=== PATIENT | male | born 1990 | race Caucasian/White ===

== ENCOUNTER 2020-07-28 14:20 | Emergency (ER) | payer MEDICAID, SELFPAY ==
[2020-07-28 14:33] VITALS: BP 144/108; PULSE 117; RESP 16; TEMP 36.3; O2SAT 99
[2020-07-28 14:42] VITALS: BP 146/122; PULSE 106
--- NOTE | 2020-07-28 14:48 | ED.GENADULT ---
HPI - General Adult General Chief complaint: Skin/Abscess/Foreign Body Stated complaint: ingrown toe nail r 1st digit toe Time Seen by Provider: 07/28/20 14:48 Source: patient and RN notes reviewed Mode of arrival: ambulatory Limitations: no limitations History of Present Illness HPI narrative: 29-year-old male presents with complaints of RT great toe with swelling, warmth, tenderness, and redness for the past 3-4 weeks. Kyaw believes he might have caused the problem removing an ingrown toenail 3-4 weeks ago. Epson salt and Hydrogen peroxide cleaning without relief. No drainage. Denies numbness or tingling. No weakness of toe. Denies fever or chills. Denies immobility. Exacerbation is movement and palpation of toe. Relieving factor is rest. Denies abdominal pain, decrease appetite, nausea, or vomiting. No history of MRSA. The patient reports he have not been diagnosed with COVID-19. The patient reports he is not waiting for the results of a COVID-19 lab test. The patient reports he do not have fever, chills, weakness, or fatigue. The patient reports he do not have a new or worsening cough or shortness of breath. Denies chest pain. The patient reports he do not have any rhinorrhea, congestion, loss of taste, sore throat, and diarrhea. Tolerating po intake well. Denies recent traveling. Denies concerns for COVID-19 or exposures been home with limited outdoor exposure except for essential household needs and return home. At this time, patient is not suspected of having COVID-19. Some parts of this dictation were generated by voice recognition software and may contain typographical and/or grammatical inaccuracies. Related Data Home Medications Medication Instructions Recorded Confirmed quetiapine 50 mg PO DAILY 07/28/20 07/28/20 Allergies Allergy/AdvReac Type Severity Reaction Status Date / Time No Known Allergies Allergy Unknown Verified 07/28/20 14:57 Review of Systems Review of Systems: Narrative: CONSTITUTIONAL: Denies fever, chills, sweats. EYES: Denies visual changes, redness, discharge. ENT: Denies rhinorrhea, congestion, sore throat, otalgia. CARDIOVASCULAR: Denies chest pain, palpitations, edema. RESPIRATORY: Denies dyspnea, wheezing, cough GASTROINTESTINAL: Denies abdominal pain, nausea, vomiting, diarrhea. GENITOURINARY: Denies dysuria, hematuria, abnormal discharge SKIN: Denies drainage, rash, or itching. Complains of RT great toe with swelling, warmth, tenderness, and redness. MUSCULOSKELETAL: Denies acute back pain or myalgia. NEUROLOGIC: Denies numbness, or focal weakness. PSYCHIATRIC: Denies anxiety or depression. All other systems reviewed are negative, except as documented in HPI and below. [facility] Past Medical History Medical History (Updated 07/31/20 @ 15:27 by DEB Henao) Anxiety Shoulder injury Tachycardia Surgical History Surgical History (Updated 07/31/20 @ 15:27 by DEB Henao) History of shoulder surgery 2009 History of tonsillectomy at age 6 Family History Family History (Updated 07/31/20 @ 15:29 by DEB Henao) Father Heart disease Cerebrovascular accident History of heart bypass surgery Mother Alive and well Social History Social History (Updated 07/31/20 @ 15:30 by DEB Henao) Smoking status: Never smoker Tobacco type: cigarettes Second hand tobacco smoke exposure: No Alcohol intake: current Substance use: former Substance use type: marijuana Living arrangements: with family Occupation/Education: unemployed Gender identity (if verbalized by the patient): Male Comments At time of signature, agree with nurse past medical, surgical, social, and family history. There is no relevant family history pertinent to the presenting complaint. Exam Narrative: Exam Narrative: GENERAL: This is a well-nourished, well-developed patient, in no apparent distress. HEAD: normocephalic
== END 2020-07-28 14:59 | disposition home or self-care (01) ==
PROVIDERS: Emergency Provider Nurse Practitioner Family
DX: L03.031 Cellulitis of right toe (principal)
CPT/HCPCS: 99213; G0463

== ENCOUNTER 2024-04-23 02:44 | Observation (INO) | payer OTHER, SELFPAY ==
[2024-04-23] VITALS (17 sets, daily range): BP systolic 145–166; BP diastolic 83–103; PULSE 89–118; RESP 16–25; TEMP 35.7–36.5; O2SAT 93–99
--- NOTE | ~2024-04-23 | XR_ITS ---
EXAMINATION: XR chest 2V DATE: 04/23/2024 03:12 INDICATION: Mid chest pain. TECHNIQUE: Frontal and lateral views of the chest were obtained. COMPARISON: Chest 2 views 11/03/2018, CT abdomen and pelvis 04/23/2024 FINDINGS: There is mild atelectasis in the lower lung zones. No pleural effusion or pneumothorax. The heart size is normal. IMPRESSION: 1. Mild atelectasis in the lower lung zones. Reviewed, dictated and finalized at location E.
--- NOTE | ~2024-04-23 | CT_ITS ---
EXAMINATION: CT abdomen pelvis w con DATE: 04/23/2024 03:26 INDICATION: Abdominal pain. TECHNIQUE: Computed tomography (CT) of the abdomen and pelvis was performed with 100 mL Omnipaque 350 intravenous contrast. Automated exposure control and iterative reconstruction technique were employe d. The dose-length product was 1901.55 mGy-cm. COMPARISON: CT abdomen and pelvis 09/23/2017 FINDINGS: The visualized portions of the lung bases demonstrate mild atelectasis. No pleural effusion . The heart size is normal. No pericardial effusion. There is mild bilateral gynecomastia. The liver and spleen are normal. The gallbladder is distended. There is fat stranding adjacent to the gallbladd er. The pancreas, adrenal glands, and kidneys are normal. The prostate is moderately enlarged. There are no dilated loops of bowel. The appendix is normal. There are no pathologically enlarged lymph nod es. There is no free intraperitoneal fluid. There is an umbilical hernia containing fat. There is a l eft inguinal hernia containing fat. There is mild thoracic and lumbar spondylosis. IMPRESSION: 1. Distended gallbladder with adjacent fat stranding, consistent with acute cholecystitis. Reviewed, dictated and finalized at location E. IMPRESSION: 1. Distended gallbladder with adjacent fat stranding, consistent with acute cho lecystitis.
--- NOTE | ~2024-04-23 | US_ITS ---
EXAMINATION: US abdomen limited DATE: 04/23/2024 09:44 INDICATION: Abdominal pain. TECHNIQUE: Multiple grayscale and Doppler ultrasound images of the abdomen were obtained. COMPARISON: CT abdomen and pelvis 04/23/2024 FINDINGS: The visualized portions of the head and body of the pancreas are normal. There is diffuse h epatic steatosis. There is normal flow in main portal vein. The gallbladder is distended. No visible gallstones. Gallbladder wall thickening is noted. There is a positive sonographic Braxton sign. The co mmon duct is normal and measures 4 mm. IMPRESSION: 1. Distended gallbladder with gallbladder wall thickening and positive sonographic Braxton's sign, con sistent with acute cholecystitis. 2. Diffuse hepatic steatosis. Reviewed, dictated and finalized at location E. IMPRESSION: 1. Distended gallbladder with gallbladder wall thickening and positive sonograp hic Braxton's sign, consistent with acute cholecystitis. 2. Diffuse hepatic steatosis.
--- NOTE | 2024-04-23 02:46 | ECG_ITS ---
Test Date: 2024-04-23 02:49:02 Measurements Intervals [place] Rate: 94 P: 6 IA: 135 QRS: 85 QRSD: 100 T: 34 QT: 354 QTc: 443 Interpretive Statements SINUS RHYTHM No previous ECG available for comparison Electronically Signed On 04-23-2024 12:07:56 CDT by Buddy Abbott M.D.
[2024-04-23 02:55] LABS: Basophils Absolute Auto 0.1 K/mm3 (0.0-0.1); Basophils Percent Auto 0.6 % (0.2-1.2); Eosinophils Absolute Auto 0.2 K/mm3 (0-0.3); Eosinophils Percent Auto 1.3 % (0-4.4); Hematocrit 48.4 % (42.0-52.0); Immature Granulocyte Absolute 0.14 K/mm3 (0.00-0.031); Immature Granulocyte Percent A 1.1 % (0-0.5); Lymphocytes Absolute Auto 1.76 K/mm3 (0.9-3.2); Lymphocytes Percent Auto 13.3 % (18.3-44.2); Mean Corpuscular HGB Conc 35.1 g/dl (32-36); Mean Corpuscular Hemoglobin 30.7 pg (26-34); Mean Corpuscular Volume 87.5 fl (80-100); Mean Platelet Volume 11.8 fl (7.4-10.4); Monocytes Absolute Auto 1.4 K/mm3 (0.1-0.6); Monocytes Percent Auto 10.7 % (2.6-8.5); Neutrophils Absolute Auto 9.7 K/mm3 (1.3-6.7); Platelet Count Result 204 k/mm3 (150-375); Red Blood Count 5.53 M/mm3 (4.6-6.20); Red Cell Distribution Width 12.5 % (11.5-14.5); White Blood Count 13.2 K/mm3 (4.5-10.0)
[2024-04-23 03:04] LABS: Alanine Aminotransferase 50 U/L (6-50); Albumin Level 4.7 g/dL (3.5-5.1); Alkaline Phosphatase 49 U/L (38-126); Anion Gap 12 mmol/L (4-12); Aspartate Amino Transferase 28 U/L (17-59); Bilirubin,Total 0.9 mg/dL (0.2-1.3); Blood Urea Nitrogen 12 mg/dL (9-20); Calcium 9.3 mg/dL (8.4-10.2); Carbon Dioxide 22 mmol/L (22-30); Chloride 107 mmol/L (98-107); Estimated CRCL calculation 133 ml/min; Estimated Glomerular Filt Rate > 60; Glucose 129 mg/dL (65-110); Lipase 69 U/L (23-300); Potassium 3.7 mmol/L (3.4-5.0); Sodium 141 mmol/L (137-145)
[2024-04-23 03:16] LABS: Troponin I < 0.012 ng/mL (0.000-0.034)
--- NOTE | 2024-04-23 03:23 | PC.NURSE ---
pt in ctscan, unable to medicate at this time.
[2024-04-23 03:28] LABS: INR 0.9; Partial Thromboplastin Time 26.9 Seconds (22.3-36.8); Prothrombin Time 12.8 Seconds (11.1-14.7)
[2024-04-23] MEDS: MORPHINE SULFATE (*CRX) 4 MG/ML INJ IV PUSH (03:31)
[2024-04-23] MEDS: SODIUM CHLORIDE 0.9% IV 1,000 ML 999 ML IV CONT (03:31)
[2024-04-23] MEDS: ONDANSETRON INJ 4 MG/2 ML VIAL IV PUSH (03:31)
[2024-04-23 04:36] LABS: Appearance Urine Clear (Clear); Bilirubin Urine Negative (Negative); Blood Urine Negative (Negative); Color Urine Yellow (Yellow); Glucose Urine UA Negative (Negative); Ketones Urine Negative (Negative); Leukocyte Esterase Ur Negative LEU/UL (Negative); Nitrate Urine Negative (Negative); Protein Urine Negative (Negative); Urobilinogen Urine 0.2 mg/dL (<2.0)
[2024-04-23 04:37] LABS: Add Urine Microscopic? NO; Specific Grav Ur 1.056 (1.001-1.035)
--- NOTE | 2024-04-23 05:16 | ED.GENADULT ---
HPI - General Adult General Chief complaint: Chest Pain Stated complaint: CHEST PAIN X 2 HOURS Time Seen by Provider: 04/23/24 02:49 History of Present Illness HPI narrative: patient id 3-year-old gentleman who presents emergency department with chief complaint of chest/ epigastric pain. Patient reports that the pain began this evening reports radiates to his back patient reports that her symptoms are not improved by anything and reports that there worsened with palpation of his abdomen Related Data Home Medications Medication Instructions Recorded Confirmed quetiapine 50 mg tablet 50 mg PO DAILY 07/28/20 07/28/20 Allergies Allergy/AdvReac Type Severity Reaction Status Date / Time No Known Allergies Allergy Unknown Verified 07/28/20 14:57 Review of Systems Review of Systems: A 10 system review of systems was completed on the patient and is negative except for what is stated in the HPI. Nursing and ancillary documentation was reviewed. [facility] Past Medical History Medical History Anxiety Shoulder injury Tachycardia Surgical History Surgical History History of shoulder surgery 2009 History of tonsillectomy at age 6 Family History Family History Father Heart disease Cerebrovascular accident History of heart bypass surgery Mother Alive and well Social History Social History Smoking status: Never smoker Tobacco type: cigarettes Second hand tobacco smoke exposure: No Alcohol intake: current Substance use: former Substance use type: marijuana Living arrangements: with family Occupation/Education: unemployed Gender identity (if verbalized by the patient): Male Exam Narrative: GENERAL: Well-appearing, well-nourished, and in no acute distress. HEAD: Normocephalic, atraumatic. EYES: PERRLA and EOMI. ENT: Nares clear, no rhinorrhea or epistaxis. Mucous membranes moist. NECK: Supple. CHEST: Clear to auscultation. No respiratory distress. HEART: Regular rate and rhythm. No murmur heard. Normal peripheral pulses. ABDOMEN: Soft, tenderness to palpation in the epigastric region, nondistended, normal active bowel sounds. EXTREMITIES: Normal range of motion. No edema. SKIN: Warm, dry, no rash. NEURO: No focal deficits. Alert and oriented x3. PSYCH: Normal mood and affect. Course Vital Signs Vital signs: Vital Signs Temperature 36.5 C 04/23/24 02:41 Pulse Rate 91 04/23/24 02:41 Respiratory Rate 18 04/23/24 02:41 Blood Pressure 166/103 H 04/23/24 02:41 Pulse Oximetry 99 04/23/24 02:41 Oxygen Delivery Room Air 04/23/24 02:41 Temperature 36.5 C 04/23/24 02:41 Pulse Rate 118 H 04/23/24 06:01 Respiratory Rate 25 H 04/23/24 06:01 Blood Pressure 146/91 H 04/23/24 06:01 Pulse Oximetry 98 04/23/24 06:01 Oxygen Delivery Room Air 04/23/24 02:41 Medical Decision Making MDM Narrative Medical decision making narrative: differential diagnosis includes ACS, cholecystitis, pancreatitis, cholelithiasis, choledocholithiasis EKG showed no acute ischemic changes laboratory studies showed a white count of 13.2 liver enzymes were normal troponin was 0 hour and 3 hour urinalysis showed no evidence UTI chlamydia gonorrhea were negative. CT scan of the abdomen pelvis showed 1. Distended gallbladder with adjacent fat stranding, consistent with acute cholecystitis. the patient was still having moderate pain. The case was discussed with Dr. Desai the patient is uncomfortable going home patient started on ceftriaxone Flagyl and will be admitted for pain control and surgical consultation. Vital Signs Vital Signs: Vital Signs Temperature 36.5 C 04/23/24 02:41 Pulse Ra
--- NOTE | 2024-04-23 05:56 | PC.NURSE ---
pt ambulatory with steady gait to exit. no distress noted.
--- NOTE | 2024-04-23 05:57 | ECG_ITS ---
Test Date: 2024-04-23 05:59:23 Measurements Intervals [place] Rate: 113 P: 33 GA: 148 QRS: 80 QRSD: 105 T: 24 QT: 333 QTc: 457 Interpretive Statements SINUS TACHYCARDIA Compared to ECG 04/23/2024 02:49:02 SINUS TACHYCARDIA NOW PRESENT Electronically Signed On 04-23-2024 12:09:46 CDT by Buddy Abbott M.D.
[2024-04-23 06:01] LABS: Chlamydia trachomatis NOT DETECTED (NOT DETECTE); Neisseria gonorrhoeae PCR NOT DETECTED (NOT DETECTE)
[2024-04-23 06:31] LABS: Troponin I < 0.012 ng/mL (0.000-0.034)
[2024-04-23] MEDS: SODIUM CHLORIDE 0.9% IV 1,000 ML 125 ML IV CONT ×3 (07:14→21:17)
[2024-04-23] MEDS: metroNIDAZOLE 500 MG/ISO 100ML 500 MG/100 ML BAG 100 MG IVPB ×3 (07:37→21:16)
--- NOTE | 2024-04-23 07:55 | ADMGEN ---
This patient, Kyaw Newell, was admitted to 3 Med Surg Room 306-02. Patient/family oriented to hospital policies and general routines including ID bracelet, bed and alarms, visiting hours, pain management, procedures, bathroom and other care routines, personal items, smoking policy, room service/diet, and visiting hours. Information on how to activate the Rapid Response Team has been discussed. Patient/Family are encouraged to report perceived risks to care and to ask questions if they do not understand what they are told or what they should do.
--- NOTE | 2024-04-23 09:01 | PM.IMHP ---
H&P: HPI History of Present Illness Date/Time: 04/23/24 09:01 Chief Complaint: Abdominal pain Narrative: This is a 33-year-old man who presented to the ER with complaints of epigastric abdominal pain. His pain started around 10:00 p.m. last night, a few hours after eating fried chicken for dinner. Initially, he thought his pain was related to heartburn. He tried belching and tried to have a bowel movement without relief. His abdominal pain became more severe and radiated up into his chest and also down across his entire abdomen. No alleviating factors. Due to the persistent pain, he came into the ER for evaluation. [place] [address]. LFTs normal. Troponin negative x2. Chest x-ray showed mild atelectasis in the lower lung zones. CT scan of the abdomen and pelvis showed a distended gallbladder with adjacent fat stranding, consistent with acute cholecystitis. No gallstones visible on CT. Also incidentally noted is a small left inguinal hernia and umbilical hernia both containing fat. He was given IV morphine in the ER, which helped his pain. He was admitted in this setting for surgical evaluation. He is seen this morning on the medical floor with his mother at the bedside. He is still having abdominal pain, but it has improved. No nausea or vomiting. He reports heartburn and epigastric pain sometimes after eating spicy foods in the past, but no comparable episodes of pain to what he experienced last night. No previous abdominal surgery. Review of Systems Review of Systems: All systems reviewed & are unremarkable except as noted in HPI and below PMFSH Past Medical History Medical History Anxiety History of pneumothorax What sounds like a small pneumothorax after general anesthesia for shoulder surgery, treated conservatively without any surgical intervention. Shoulder injury Tachycardia Surgical History Surgical History History of shoulder surgery 2009 History of tonsillectomy at age 6 Family History Family History Father Heart disease Cerebrovascular accident History of heart bypass surgery Mother Alive and well Social History Social History Smoking status: Former smoker Second hand tobacco smoke exposure: No Alcohol intake: current Substance use: former Substance use type: marijuana Living arrangements: with family Occupation/Education: unemployed Gender identity (if verbalized by the patient): Male Meds Home Medications and Allergies Home Medications Medication Instructions Recorded Confirmed Type doxycycline monohydrate 100 mg 100 mg PO BID Infection 10 days 07/28/20 Rx capsule #20 caps quetiapine 50 mg tablet 50 mg PO DAILY 07/28/20 07/28/20 History Allergies Allergy/AdvReac Type Severity Reaction Status Date / Time prednisone Allergy Hives Verified 04/23/24 07:40 Vital Signs Vital Signs - 24 hr 04/23/24 02:41 04/23/24 02:49 04/23/24 04:48 Temperature 97.7 F Pulse Rate 91 89 103 H Respiratory Rate 18 18 Blood Pressure 166/103 H Pulse Oximetry 99 97 Oxygen Delivery Room Air Fraction of Inspired Oxygen 04/23/24 05:12 04/23/24 05:15 04/23/24 05:16 Temperature Pulse Rate 105 H 107 H 102 H Respiratory Rate 20 19 24 H Blood Pressure 154/91 H Pulse Oximetry 95 93 97 Oxygen Delivery Fraction of Inspired Oxygen 04/23/24 05:17 04/23/24 05:31 04/23/24 05:34 Temperature Pulse Rate 102 H 110 H 105 H Respiratory Rate 18 20 19 Blood Pressure 152/96 H Pulse Oximetry 97 97 98 Oxygen Delivery Fraction of Inspired Oxygen 04/23/24 05:46 04/23/24 06:00 04/23/24 06:01 Temperature Pulse Rate 106 H 116 H 118 H Respiratory Rate 18 16 25 H Blood Pressure 163/83 H 146/91 H
[2024-04-23 11:38] LABS: Troponin I < 0.012 ng/mL (0.000-0.034)
--- NOTE | 2024-04-23 15:53 | PM.DS ---
DS: Admitting Diagnosis Discharge Date 04/23/2024 Admitting Diagnosis Acute cholecystitis DS: Discharge Diagnosis Discharge Diagnosis (1) Acute cholecystitis: Code(s): K81.0 - Acute cholecystitis Status: Acute DS: Summary Hospital Course Reason for hospitalization: This is a 33-year-old man who presented to the ER with epigastric abdominal pain. Workup showed CT evidence of acute cholecystitis and mild leukocytosis. Pain persisted after IV morphine in the ER and he was admitted for surgical evaluation. Hospital Course: Right upper quadrant ultrasound ordered and showed no gallstones, but findings consistent with acute cholecystitis. Throughout the day, his abdominal pain has resolved and he is feeling much better this afternoon. Patient is now wishing to try eating a diet and if he is able to tolerate this, then he wishes to go home and return for surgery as an outpatient. His diet was advanced to a low-fat diet today. He will be discharged home this afternoon on oral antibiotics if able to tolerate a diet. Plan will be to schedule him for a laparoscopic cholecystectomy with Dr. Black in the next few weeks as an outpatient. Status at Discharge Functional status at discharge: independent ambulation Overall status at discharge: patient is back to baseline Time Spent with Patient Time attestation: Total time spent providing and/or coordinating discharge services: Time spent: Greater than 30 minutes Exam Const: General: comfortable and no acute distress Orientation/consciousness: patient oriented x3 GI: Inspection: non-distended and obesity GI Palp: Yes Soft to palpation, No Tenderness to palpation present (GI), No Guarding due to palpation present (GI) and No Rebound tenderness present Auscultation: normal bowel sounds DS: Data Data Completed and Pending Labs on day of discharge: Labs from last 24 hours 04/23/24 04/23/24 04/23/24 11:04 05:53 04:27 WBC RBC Hgb Hct MCV MCH MCHC RDW Plt Count MPV Immature Gran % (Auto) Neut % (Auto) Lymph % (Auto) [place] % (Auto) Eos % (Auto) Baso % (Auto) Lymph # (Auto) [place] # (Auto) Eos # (Auto) Baso # (Auto) Abs Immat Gran (auto) Absolute Neuts (auto) Absolute Nucleated RBC Nucleated RBC % PT INR APTT Sodium Potassium Chloride Carbon Dioxide Anion Gap BUN Creatinine Estim Creat Clear Calc Estimated GFR Glucose Calcium Total Bilirubin AST ALT Alkaline Phosphatase Troponin I < 0.012 < 0.012 Total Protein Albumin Lipase Urine Color Yellow Urine Appearance Clear Urine pH 7.0 Ur Specific [place] 1.056 H Urine Protein Negative Urine Glucose (UA) Negative Urine Ketones Negative Ur Blood (Man) Negative Urine Nitrate Negative Urine Bilirubin Negative Urine Urobilinogen 0.2 Leukocyte Esterase Rfl Negative C. trachomatis (PCR) Not detected N. gonorrhoeae (PCR) Not detected 04/23/24 02:50 WBC 13.2 H RBC 5.53 Hgb 17.0 Hct 48.4 MCV 87.5 MCH 30.7 MCHC 35.1 RDW 12.5 Plt Count 204 MPV 11.8 H Immature Gran % (Auto) 1.1 H Neut % (Auto) 73.0 Lymph % (Auto) 13.3 L [place] % (Auto) 10.7 H Eos % (Auto) 1.3 Baso % (Auto) 0.6 Lymph # (Auto) 1.76 [place] # (Auto) 1.4 H Eos # (Auto) 0.2 Baso # (Auto) 0.1 Abs Immat Gran (auto) 0.14 H Absolute Neuts (auto) 9.7 H Absolute Nucleated RBC 0.000 Nucleated RBC % 0.0 PT 12.8 INR 0.9 APTT 26.9 Sodium 141 Potassium 3.7 Chloride 107 Carbon Dioxide 22 Anion Gap 12 BUN 12 Creatinine 1.10 Estim Creat Clear Calc 133 Estimated GFR > 60 Glucose 129 H Calcium 9.3 Total Bilirubin 0.9 AST 28 ALT 50 Alkaline Phosphatase 49 Troponin I < 0.012 Total Protein 8.0 Albumin 4.7 Lipase 69 Urine Color Urine Appearance Urine pH Ur Specific [place] Urine Protein Urine Glucose (UA) U
[2024-04-24] VITALS (19 sets, daily range): BP systolic 133–169; BP diastolic 77–113; PULSE 86–110; RESP 14–29; TEMP 36.1–37.2; O2SAT 92–100
[2024-04-24] MEDS: metroNIDAZOLE 500 MG/ISO 100ML 500 MG/100 ML BAG 100 MG IVPB ×3 (04:57→21:56)
[2024-04-24] MEDS: SODIUM CHLORIDE 0.9% IV 1,000 ML 125 ML IV CONT (04:57)
--- NOTE | 2024-04-24 08:28 | PM.PNGS ---
Progress Note: A&P Assessment and Plan (1) Acute cholecystitis: Code(s): K81.0 - Acute cholecystitis Status: Acute Assessment and Plan: setup for cholecystectomy today, NPO, IV abx Subjective Subjective Date/Time Seen: 04/24/24 08:28 Interval history: still c some mild pain, was able to lianna low fat diet yesterday Review of Systems Review of Systems: All systems reviewed & are unremarkable except as noted in HPI and below Exam GI: Inspection: normal to inspection GI Palp: Yes abdominal tenderness, Yes Soft to palpation, Yes Tenderness to palpation present (GI), No Guarding due to palpation present (GI) and No Rigid due to palpation Objective Data Vital Signs Vital Signs: Vital Signs - 24 hr 04/23/24 08:33 04/23/24 14:00 04/23/24 09:11 Temperature 36.3 C L 35.9 C L Pulse Rate 103 H 101 H Respiratory Rate 22 H 20 Blood Pressure 148/97 H 145/95 H Pulse Oximetry 98 97 Oxygen Delivery Room Air 04/23/24 20:35 04/24/24 04:35 Temperature 35.7 C L 36.2 C L Pulse Rate 93 94 Respiratory Rate 16 16 Blood Pressure 146/96 H 150/84 H Pulse Oximetry 98 99 Oxygen Delivery Intake/Output Intake/Output: Intake & Output 04/21/24 04/22/24 04/23/24 04/24/24 23:59 23:59 23:59 23:59 Intake Total 3776.2 1358.3 Balance 3776.2 1358.3 Meds/Results Medications: Active Medications Generic Name Dose Route Start Last Admin Trade Name Freq PRN Reason Stop Dose Admin Fentanyl Citrate 25 mcg 04/24/24 07:48 Fentanyl Citrate Inj (*Crx) 100 Mcg/2 Ml Vial IV PUSH Q2M PRN Pain Sodium Chloride 1,000 mls @ 125 mls/hr 04/23/24 06:55 04/24/24 04:57 Normal Saline Iv IV CONT 125 mls/hr .Q8H FERNANDO Administration Ceftriaxone Sodium 1 gm in 50 mls @ 100 mls/hr 04/24/24 09:00 Rocephin 1 Gm/Ns 50 Ml IVPB Q24H FERNANDO Metronidazole 500 mg in 100 mls @ 100 mls/hr 04/23/24 14:00 04/24/24 04:57 Flagyl 500 Mg/Iso Soln 100 Ml IVPB 100 mls/hr Q8HR FERNANDO Administration Lactated Ringer's 1,000 mls @ 30 mls/hr 04/24/24 07:50 Lr - Lactated Ringers Iv IV CONT .Q24H FERNANDO Morphine Sulfate 4 mg 04/23/24 06:51 Morphine Sulfate (*Crx) 4 Mg/Ml Inj IV PUSH Q2H PRN Pain Rated 7-10 Ondansetron HCl 4 mg 04/23/24 06:51 Ondansetron Inj 4 Mg/2 Ml Vial IV PUSH Q4H PRN Nausea Radiology Results: ITS Impressions Chest X-Ray 04/23/24 05:08 IMPRESSION: 1. Mild atelectasis in the lower lung zones. Abdomen/Pelvis CT 04/23/24 05:09 IMPRESSION: 1. Distended gallbladder with adjacent fat stranding, consistent with acute cholecystitis. Abdomen Ultrasound 04/23/24 09:50 IMPRESSION: 1. Distended gallbladder with gallbladder wall thickening and positive sonographic Braxton's sign, consistent with acute cholecystitis. 2. Diffuse hepatic steatosis. Labs Labs: Laboratory Results - last 24 hr 04/23/24 11:04 Troponin I < 0.012
--- NOTE | 2024-04-24 11:57 | PC.NURSE ---
To OR per [kari], IV [ 18 R wrist and 18 L ac ]. Report given to [Kari].
[2024-04-24] MEDS: LACTATED RINGERS 1,000 ML 30 ML IV CONT ×3 (12:00→14:15)
--- NOTE | 2024-04-24 12:31 | WPDANESEPPF ---
Anes - Initial Pre Proc Eval Procedure: Operation Date: 04/24/24 13:00 Proposed Procedures p Laparoscopic Cholecystectomy - Mookie Dodson DO Date/Time: 04/24/24 12:31 Surgeon: Yadira Black MD Pre Op Diagnosis: acute colecystitis Patient Data Age: 33 Gender: M Height: 1.91 m Weight: 150.5 kg Last Vital Signs Temp 97.2 F L 04/24/24 10:30 Pulse 92 04/24/24 10:30 Resp 20 04/24/24 10:30 BP 150/94 H 04/24/24 10:30 Pulse Ox 100 04/24/24 10:30 O2 Del Method Room Air 04/23/24 09:11 FiO2 21 04/23/24 08:10 Allergies Allergy/AdvReac Type Severity Reaction Status Date / Time prednisone Allergy Hives Verified 04/23/24 07:40 Home Medications Medication Instructions Recorded Confirmed Type amoxicillin 875 mg-potassium 1 tablet PO Q12H #10 tabs 04/23/24 Rx clavulanate 125 mg tablet Patient hx anesthesia problems: other (Pt apparently had ptx after GA for shoulder sx at 19 yo, uncertain of if he had ISB or not. Other details unclear. ) Family hx anesthesia problems: none Results Review: All pre-operative results and documents have been reviewed as part of the pre-operative evaluation. [facility] Past Medical History Medical History Anxiety History of pneumothorax What sounds like a small pneumothorax after general anesthesia for shoulder surgery, treated conservatively without any surgical intervention. Shoulder injury Tachycardia Surgical History Surgical History History of shoulder surgery 2009 History of tonsillectomy at age 6 Family History Family History Father Heart disease Cerebrovascular accident History of heart bypass surgery Mother Alive and well Social History Social History Smoking status: Former smoker Second hand tobacco smoke exposure: No Alcohol intake: current Substance use: former Substance use type: marijuana Do You Feel Safe in your Home?: Yes Lack of Transportation: No Lack of Food: Never True Current Housing: I Have Housing Concerned About Future Housing: No Difficulty Paying Gas/Electric Bills: No Difficulty Paying for Meds: No Currently Unemployed: No Education: Decline to Answer Difficulty w/ Childcare or Family Care: No Living arrangements: with family Occupation/Education: unemployed Gender identity (if verbalized by the patient): Male Spiritual care concerns: No Anes - Eval Final PreProcedure Day of Procedure 04/24/24 12:31 Patient weight: morbidly obese Heart: regular rate and rhythm Lungs: clear to auscultation Airway: Mallampati scale class III Neurological: alert and oriented Last oral intake: >/= 8 hours ASA classification: III Emergent: no Anesthetic plan: proceed Anesthesia type and monitoring: general ETT and standard monitoring Results Review: All pre-operative results and documents have been reviewed as part of the pre-operative evaluation. Pt w PANKAJ suspected, no definitive dx. Now for lap aguila. Informed Consent: The patient's anesthetic plan and its attendant risks and benefits were discussed with the patient/family/POA. Questions were solicited and answers provided to the satisfaction of the patient/family/POA.
--- NOTE | 2024-04-24 12:52 | WPDHPUPDATE1 ---
History and Physical Update Update Date/Time: 04/24/24 12:52 History and Physical has been reviewed, including an updated exam of the patient. There are NO changes in the patient's condition. Risks, benefits, and alternatives have been discussed and questions answered. Patient agrees to proceed with procedure.
[2024-04-24] MEDS: BUPIVACAINE/EPINEPHRINE 0.5% 10 ML VIAL 30 ML INFILTRATE (13:42)
--- NOTE | 2024-04-24 14:13 | W.PM.PROC2 ---
Procedure Note - Detailed Date of Procedure 04/24/24 Pre-op Diagnosis acute cholecystitis Post-op Diagnosis Same Procedure Performed Laparoscopic Cholecystectomy Surgeon Mokoie Dodson, DO Anesthesia General and Local (0.5% bupivacaine) Indications This is a 33-year-old man who presented to the emergency department with acute onset of right upper quadrant abdominal pain. He was found to have an elevated white blood count and CT showed evidence of acute cholecystitis. He was feeling slightly better and was started on a low-fat diet. Patient was hoping to possibly be discharged home if his pain was resolved, however his pain persisted with even trying a low-fat diet. Further discussions were made with the patient about treatment options and decision was made to proceed with laparoscopic cholecystectomy, possible open. Findings Laparoscopic cholecystectomy was performed. The patient's gallbladder appeared acutely inflamed with hyperemia, induration, and distended gallbladder. The gallbladder was tense and difficult to grasp, therefore it was aspirated with laparoscopic aspirating needle. About 60 mL of thick sludge bile was aspirated. The cystic duct appeared normal in size. The gallbladder was removed and sent to the lab for pathology. I did have some bleeding at the cystic artery stump after I transected it. I was able to control the bleeding vessel and placed 2 more clips across it and hemostasis was then adequate afterwards. Description of Procedure Procedure as well as risks, benefits, and alternatives were discussed with patient. Written consent was obtained and placed in chart prior to procedure. The patient was brought back to surgical suite. Patient was placed in supine position on operating table. Time-out was done to confirm patient and procedure. Patient was then intubated by the anesthesia department. Abdomen was prepped and draped in sterile fashion using chlorhexidine prep. 0.5% bupivacaine with epinephrine was infiltrated at each site of incision. A 5 millimeter incision was made near the umbilicus, and a 5 millimeter Optiview trocar was advanced through the abdominal layers under direct visualization. Once inside the abdominal cavity, carbon dioxide was insufflated to create a pneumoperitoneum. The camera was inserted and the abdomen was inspected. No immediate abnormalities were identified. The patient was placed in reverse Trendelenburg position and rotated slightly to the left. An 11 millimeter incision was made in the subxiphoid region, and an 11 millimeter trocar was inserted under direct visualization. Two 5 millimeter incisions were made in the right upper quadrant, and two 5 millimeter trocars were inserted under direct visualization. The gallbladder was identified and grasped at the fundus and retracted superiorly. It was then grasped at the infundibulum retracted laterally. Careful dissection around the neck of the gallbladder was performed using blunt dissection with a [place] grasper and hook electrocautery. The cystic duct was identified, and a window was created behind it. The cystic artery was also identified and a window was created behind it. The critical view of safety was identified, visualizing the cystic duct running directly into the neck of the gallbladder, and the cystic artery running directly into the wall of the gallbladder. A 5 millimeter clip perforator loader was then used to place 2 clips proximally and 1 clip distally on both the cystic duct and cystic artery. They were then both transected using endoscopic scissors. Once safely away from the conor hepatitis, the gallbladder was dissected free from the liver bed using hook electrocautery. Hemostasis was achieved along the way. The gallbladder was removed completely and then removed through the subxiphoid port. The liver bed was then inspected. Hemostasis appeared adequate, and our clips appeared secure. The area was gently irrigated with sterile [place]
[2024-04-24] MEDS: fentaNYL CITRATE INJ (*CRX) 100 MCG/2 ML VIAL 25 MCG IV PUSH ×4 (14:51→15:15)
[2024-04-24] MEDS: oxyCODONE HCL (*CRX) 5 MG TAB IR PO (15:33)
--- NOTE | 2024-04-24 16:04 | PC.NURSE ---
Returned from OR per [ ]. Report received from [Madisyn].
[2024-04-24] MEDS: HYDROcodone/acetaminophen (*CRX) 10-325 MG TABLET 1 TAB PO ×2 (16:29→20:25)
[2024-04-24] MEDS: LACTATED RINGERS 1,000 ML 100 ML IV CONT (16:30)
[2024-04-24] MEDS: MORPHINE SULFATE (*CRX) 2 MG/ML INJ IV PUSH (22:38)
[2024-04-25] MEDS: HYDROcodone/acetaminophen (*CRX) 10-325 MG TABLET 1 TAB PO (01:07)
[2024-04-25 05:37] VITALS: BP 125/82; PULSE 88; RESP 16; TEMP 36.6; O2SAT 96
[2024-04-25] MEDS: metroNIDAZOLE 500 MG/ISO 100ML 500 MG/100 ML BAG 100 MG IVPB (06:48)
[2024-04-25 07:13] LABS: Hematocrit 47.5 % (42.0-52.0); Hemoglobin 15.7 g/dL (14.0-18.0); Mean Corpuscular HGB Conc 33.1 g/dl (32-36); Mean Corpuscular Hemoglobin 31.2 pg (26-34); Mean Corpuscular Volume 94.2 fl (80-100); Mean Platelet Volume 12.3 fl (7.4-10.4); Platelet Count Result 184 k/mm3 (150-375); Red Blood Count 5.04 M/mm3 (4.6-6.20); Red Cell Distribution Width 12.6 % (11.5-14.5); White Blood Count 17.3 K/mm3 (4.5-10.0)
[2024-04-25 07:26] LABS: Anion Gap 9 mmol/L (4-12); Blood Urea Nitrogen 11 mg/dL (9-20); Calcium 9.1 mg/dL (8.4-10.2); Carbon Dioxide 25 mmol/L (22-30); Chloride 104 mmol/L (98-107); Estimated CRCL calculation 164 ml/min; Estimated Glomerular Filt Rate > 60; Glucose 101 mg/dL (65-110); Potassium 4.3 mmol/L (3.4-5.0); Sodium 138 mmol/L (137-145)
[2024-04-25] MEDS: HYDROcodone/acetaminophen (*CRX) 5-325 MG TABLET 1 TAB PO (08:36)
[2024-04-25 09:41] VITALS: BP 136/81; PULSE 88; RESP 16; TEMP 36.3; O2SAT 98
--- NOTE | 2024-04-25 11:47 | PM.DS ---
DS: Admitting Diagnosis Discharge Date 04/25/2024 Admitting Diagnosis Acute cholecystitis DS: Discharge Diagnosis Discharge Diagnosis (1) Acute cholecystitis: Code(s): K81.0 - Acute cholecystitis Status: Acute (2) Obesity, morbid, BMI 40.0-49.9: Code(s): E66.01 - Morbid (severe) obesity due to excess calories Status: Acute DS: Summary Hospital Course Reason for hospitalization: This is a 33-year-old man who presented to the ER with complaints of epigastric abdominal pain x1 day. Workup in the ER showed a mild leukocytosis, negative cardiac workup, and CT evidence of acute cholecystitis. He was admitted for surgical evaluation in this setting. Hospital Course: The patient was started on broad-spectrum IV antibiotics. Right upper quadrant abdominal ultrasound ordered and showed no gallstones, but evidence again of acute cholecystitis. Patient initially felt like his abdominal pain improved and we tried advancing his diet for discharge on oral antibiotics. He was unable to tolerate a diet with aggravated abdominal pain. Therefore, decision was made to proceed with a laparoscopic cholecystectomy that was done on 04/24/[address] Dodson. Following surgery, his diet was slowly advanced to a low-fat diet. He is tolerating his diet and tolerating activity today. His pain is better controlled this morning with oral pain medication. He is stable for discharge at this time. Status at Discharge Functional status at discharge: independent ambulation Overall status at discharge: patient is progressing back to baseline Time Spent with Patient Time attestation: Total time spent providing and/or coordinating discharge services: Time spent: Greater than 30 minutes Exam Const: General: comfortable and no acute distress Resp: Effort & Inspection: normal respiratory effort Auscultation: clear to auscultation bilaterally Cardio: Rate: regular rate Rhythm: regular rhythm GI: Inspection: non-distended and incision (incisions dry and intact) GI Palp: Yes Soft to palpation, Yes Tenderness to palpation present (GI) (incisional) and No Guarding due to palpation present (GI) Auscultation: normal bowel sounds Neuro: General: moves all extremities and no focal motor deficits Extrem: General: no calf tenderness and no edema Psych: Mental Status: mental status grossly normal Insight: Good insight present (Psych) DS: Data Data Completed and Pending Completed studies during hospitalization: Pending at discharge 04/24/24 13:46 Surgical [PTH] Routine Labs on day of discharge: Labs from last 24 hours 04/25/24 06:28 WBC 17.3 H RBC 5.04 Hgb 15.7 Hct 47.5 MCV 94.2 D MCH 31.2 MCHC 33.1 RDW 12.6 Plt Count 184 MPV 12.3 H Sodium 138 Potassium 4.3 Chloride 104 Carbon Dioxide 25 Anion Gap 9 BUN 11 Creatinine 0.90 Estim Creat Clear Calc 164 Estimated GFR > 60 Glucose 101 Calcium 9.1 Procedures/Treatments: Procedures Operation Date: 04/24/24 13:00 Actual Procedure Side Surgeon p Laparoscopic Cholecystectomy Not Applicable Mookie Dodson DO Imaging Radiologist's impression: ITS Impressions Chest X-Ray 04/23/24 05:08 IMPRESSION: 1. Mild atelectasis in the lower lung zones. Abdomen/Pelvis CT 04/23/24 05:09 IMPRESSION: 1. Distended gallbladder with adjacent fat stranding, consistent with acute cholecystitis. Abdomen Ultrasound 04/23/24 09:50 IMPRESSION: 1. Distended gallbladder with gallbladder wall thickening and positive sonographic Braxton's sign, consistent with acute cholecystitis. 2. Diffuse hepatic steatosis. Discharge Plan Discharge Attending physician on discharge: Mookie Dodson Consulting providers: Micah Gamino Discharging Clinician: Ely Shaikh Anticipated Discharge Date/Time: 04/25/24 11:48 Patient Disposition: Home, Self-Care Activity: may shower and other - see discharge instructio
== END 2024-04-25 12:32 | disposition home or self-care (01) ==
LOC: ANHED 06:55 → ANH3MEDSUR 08:28
PROVIDERS: Admitting Provider Surgery; Emergency Provider Emergency Medicine; Visit Provider Surgery
PROC: 0FT44ZZ Resection of Gallbladder, Percutaneous Endoscopic Approach (ICD-10-PCS; CPT 47562; principal; 2024-04-24 13:00)
DX: K81.1 Chronic cholecystitis (principal); F41.9 Anxiety disorder, unspecified; Z87.891 Personal history of nicotine dependence; E66.01 Morbid (severe) obesity due to excess calories; Z68.41 Body mass index [BMI] 40.0-44.9, adult
CPT/HCPCS: 47562; 36415; 71046; 74177; 76705; 80048; 80053; 81003; 83690; 84484; 85025; 85027; 85610; 85730; 87491; 87591; 88304; 93005; 96361; 96365; 96375; 99285; A9270; G0378; J0696; J1100; J1170; J1836; J2250; J2270; J2405; J2704; J3010; J7030; J7120; Q9967